=== PATIENT | female | born 1970 | race Caucasian/White ===

== ENCOUNTER → 2018-06-19 10:00 | Outpatient (CLI) | payer MEDICAID, SELFPAY ==
--- NOTE | 2018-06-19 10:08 | XR_ITS ---
XR forearm LT 2V HISTORY: ITS.REASON: LT FOREARM PAIN ORDERING PHYSICIAN: Dante Messer MD PATIENT AGE: 47 years COMPARISON: 12/24/2017 FINDINGS: There remains a bone plate over the proximal to mid aspect of the radius and mid aspect of the ulna. These bone plates and stabilizing screws are not significantly changed. There remains good alignment. No acute fracture or dislocation is evident. Multiple lucencies are present over the distal radius consistent with prior screw tracks. The fracture line of the junction of the proximal to mid radius is somewhat less apparent. Prominent soft tissue swelling is present along the proximal to mid aspect of the ulna. There remains good alignment. IMPRESSION: Status post ORIF fractures of the radius and ulna as described above with prominent soft tissue swelling along the ulna. There remains good alignment with interval progressive healing of the radial fracture
== END ==
PROVIDERS: PCP Internal Medicine Adolescent Medicine; Visit Provider Internal Medicine Adolescent Medicine
DX: M79.632 Pain in left forearm
CPT/HCPCS: 73090

== ENCOUNTER 2018-06-19 16:24 | Outpatient (RCR) | payer MEDICAID, SELFPAY | END 2018-06-19 16:29 | disposition home or self-care (01) | LOC: PT 16:24 | PROVIDERS: Visit Provider Internal Medicine Adolescent Medicine | DX: M79.602 Pain in left arm (principal) | CPT/HCPCS: 97763 ==

== ENCOUNTER 2018-07-22 10:36 | Observation (INO) ==
--- NOTE | 2018-07-22 11:28 | Pharmacy Consult Notes ---
[facility] Pharmacy VTE Monitoring - Patient Demographics Admission date: 07/22/18 Report Date: 07/22/18 Time: 11:28 Allergies/Adverse Reactions: Patient Allergies azithromycin [From ZITHROMAX] Allergy (Mild, Verified 05/20/18 21:19) codeine [CODEINE] Allergy (Mild, Verified 05/20/18 21:19) ketorolac [From TORADOL] Allergy (Mild, Verified 05/20/18 21:19) morphine [MORPHINE] Allergy (Mild, Verified 05/20/18 21:19) Penicillins [PENICILLINS] Allergy (Mild, Verified 05/20/18 21:19) promethazine [From PHENERGAN] Allergy (Mild, Verified 05/20/18 21:19) tramadol [From ULTRAM] Allergy (Mild, Verified 05/20/18 21:19) - VTE Risk VTE Score: 4 VTE Risk Level: Low Risk - Prophylaxis VTE Prophylaxis Ordered?: Yes Types of VTE Prophylaxis: TEDS Knee High Location of Applied Device: Bilateral Lower Extremeties - VTE Diagnosis Confirmed Treatment or plan recommended: Continue Current Treatment
[2018-07-22 12:03] LABS: Basophils % 0.1 % (0.1-2.0); Eosinophils % 0.3 % (0.1-12.0); Hemoglobin 13.5 g/dL (12.2-16.2); Lymphocytes # 1.8 K/mm3 (0.7-4.5); Lymphocytes % 18.3 % (10-50); Mean Corpuscular HGB Conc 33.7 g/dL (31.8-35.4); Mean Corpuscular Hemoglobin 30.2 pg (27.0-31.2); Mean Corpuscular Volume 89.6 fl (81-99); Mean Platelet Volume 9.2 fl (7.4-10.4); Monocytes # 0.8 K/mm3 (0.1-1.0); Monocytes % 8.1 % (1.7-9.3); Neutrophils # 7.1 K/mm3 (1.8-7.8); Neutrophils % 73.3 % (37.0-80.0); Platelet Count 183 K/mm3 (142-424); Red Blood Count 4.47 M/mm3 (4.20-5.40); Red Cell Distribution Width 13.3 % (11.5-17.5); White Blood Count 9.7 K/mm3 (4.8-10.8)
[2018-07-22 12:13] LABS: Albumin/Globulin Ratio 0.8 (1.1-1.8); Anion Gap 13.1 mEq/L (5-15); Bilirubin,Total 0.7 mg/dL (0.2-1.0); Calcium 8.5 mg/dL (8.5-10.1); Potassium 3.1 mmoL/L (3.5-5.1)
[2018-07-22 12:23] LABS: C-Reactive Protein 8.8 mg/L (0.0-0.9)
--- NOTE | 2018-07-22 13:35 | History & Physical Report ---
*Admission Date: 07/22/18 *Chief complaint: left arm pain and swelling *History of present illness: 47 year old female presented to PCP office with redness, swelling and pain of LUE. Patient reports syncopal episode on Friday in which she woke-up in the floor with black eye and left arm pain. She has had several other similar episodes of syncope over the last few months. Typically she has dizziness prior to passing out; however states "this time was different. I just went out." Patient reports left arm pain and swelling slowly progressed since injury. She has h/o ORIF of left forearm following traumatic fracture in 2001 with replacement again in 2017. Yesterday, she had onset of nausea, vomiting and low grade temps. She went to the ED last night, patient had CBC which was unremarkable. CRP and Sed Rate were slightly elevated. X-ray left forearm and elbow were unremarkable. CT scan of left FA showed soft tissue swelling. She was given a dose of IV antibiotics and advised to FU in office this morning. Today, patient reports pain and swelling has increased. Outlined area of erythema has extended since marking last evening. + low grade temps. + nausea. Denies open lesions or wounds. Patient was direct admitted for IV antibiotics and further evaluation. [facility] History I have reviewed the patient's past medical history: Yes Medical History: Reports:: Heart Murmur Denies:: Cancer, Diabetes Mellitus Type 1, Diabetes Mellitus Type 2, MRSA *Have you ever received a pneumonia vaccine?: Yes *Have you received a flu vaccine this season?: Yes Laterality Cases: Left: Arthroscopy Knee Other Surgeries: Yes: Tubal Ligation, Other (surgery left arm) Amputation: No Fractures: No (left ulna/radius) - *Social History Educational Level: Completed High School Smoking Status: Current every day smoker Tobacco Type: cigarettes # Packs/Day (cigarettes): 1 Alcohol Intake: former Substance Use Type: marijuana Last Used Substance: days (ago) *Occupational Status:: employed Housing: house Household Members: significant other *Travel in the last 8 weeks: None - Psychiatric History Expresses thoughts of harming self/others: None Suicide Plan Description: No Plan Family Hx:: Cancer, Heart Attack Review of Systems - Review of Systems Review of systems:: pertinent systems reviewed and negative unless documented below - Constitutional Reports fever(s), Reports malaise - *Gastrointestinal Reports nausea, Reports vomiting - Integumentary/Breasts Reports other Meds Home Medications Medication Instructions Recorded Confirmed Type gabapentin 800 mg tablet 800 mg PO QID tab 11/24/17 07/22/18 History oxycodone 5 mg tablet 5 mg PO TID tab 11/24/17 07/22/18 History SUMAtriptan succinate [Imitrex] 50 mg PO NEEDED PRN 12/24/17 07/22/18 History Lisinopril [Lisinopril 10mg Tab] 10 mg PO DAILY 07/21/18 07/22/18 History Citalopram Hydrobromide [Celexa] 10 mg PO DAILY 07/22/18 07/22/18 History Ipratropium/Albuterol Sulfate 3 ml IH Q4RT 07/22/18 07/22/18 History [Duoneb 3mL neb] Levothyroxine Sodium 50 mcg PO DAILY 07/22/18 07/22/18 History [Levothyroxine 50mcg (0.05mg) Tab] Metoprolol Succinate 100 mg PO DAILY 07/22/18 07/22/18 History Allergies Allergy/AdvReac Type Severity Reaction Status Date / Time azithromycin [From ZITHROMAX] Allergy Mild Verified 05/20/18 21:19 codeine [CODEINE] Allergy Mild Verified 05/20/18 21:19 ketorolac [From TORADOL] Allergy Mild Verified 05/20/18 21:19 morphine [MORPHINE] Allergy Mild Verified 05/20/18 21:19 Penicillins [PENICILLINS] Allergy Mild Verified 05/20/18 21:19 promethazine [From PHENERGAN] Allergy Mild Verified 05/20/18 21:19 tramadol [From ULTRAM] Allergy Mild Verified 05/20/18 21:19 Exam Vital signs and Labs for Last 24 Hours: Temp Pulse Resp BP Pulse Ox 99.1 F 106 H 18 136/71 99 07/22/18 13:26 07/22/18 11:30 07/22/18 11:30 07/22/18 11:30 07/22/18 11:30 Laboratory Results - last 24 hr 07/22/18 11:40: WBC 9.7, RBC 4.47, Hgb 13.5, Hct 40.0, MCV 89.6, MCH 30.2, MCHC 33.7, RDW 13.3, Plt Count 183, MPV 9.2, Neut % (Auto) 73.3, Lymph % (Auto) 18.3, [place] % (Auto) 8.1, Eos % (Auto) 0.3, Baso % (Auto) 0.1, Neut # (Auto) 7.1, Lymph # (Auto) 1.8, [place] # (Auto) 0.8, Eos # (Auto) 0.0, Baso # (Auto) 0.0 07/22/18 11:40: Sodium 141, Potassium 3.1 L, Chloride 105, Carbon Dioxide 26, Anion Gap 13.1, BUN 4 L, Creatinine 0.60, Estimated Creat Clear 120, Estimated GFR 106, Est GFR ( Amer) 129 D, Glucose 99 D, Calcium 8.5, Total Bilirubin 0.7, AST 12 L, ALT 23, Alkaline Phosphatase 100, C-Reactive Protein 8.8 H D, Total Protein 7.0, Albumin 3.0 L, Globulin 4.0 H, Albumin/Globulin Ratio 0.8 L 07/22/18 11:40: ESR 33 H I & O for Last 24 hours: Intake & Output 07/20/18 07/21/18 07/22/18 07/23/18 11:59 11:59 11:59 11:59 Weight 148 lb 4 oz Narrative: Alert and oriented x3. Rate and rhythm regular. Abdomen soft and nontender. Lung sounds with scattered wheezes. Neck without LAD, JVD. ENT exam unremarkable. Left forearm erythematous, edematous extending from wrist to approx 3 cm above AC, worse on medial aspect, tight, severe tender. Radial pulse 2+, no open lesions, ROM limited d/t pain/swelling Assessment and Plan (1) Cellulitis of left forearm Current visit: Yes Status: Acute Category: Medical Code(s): L03.114 - Cellulitis of left upper limb (2) Syncopal episodes Current visit: Yes Status: Acute Category: Medical Code(s): R55 - Syncope and collapse (3) Marijuana abuse Current visit: Yes Status: Acute Category: Medical Code(s): F12.10 - Cannabis abuse, uncomplicated (4) Chronic pain syndrome Current visit: Yes Status: Chronic Category: Medical Code(s): G89.4 - Chronic pain syndrome (5) COPD (chronic obstructive pulmonary disease) Current visit: Yes Status: Chronic Qualifiers: COPD type: COPD with acute exacerbation Qualified Code(s): J44.1 - Chronic obstructive pulmonary disease with (acute) exacerbation Category: Medical Code(s): J44.9 - Chronic obstructive pulmonary disease, unspecified (6) Essential (primary) hypertension Current visit: Yes Status: Acute Category: Medical Code(s): I10 - Essential (primary) hypertension (7) Acquired hypothyroidism Current visit: Yes Status: Chronic Category: Medical Code(s): E03.9 - Hypothyroidism, unspecified - Assessment and plan all Dx Assessment and Plan for all problems:: Admit to Medsurg. Start clindamycin and vancomycin for broad spectrum coverage. Will obtain blood cultures. Echo, carotid and telemetry to evaluate for underlying pathology of syncope. Home meds restarted which includes oxycodone for pain control.
--- NOTE | 2018-07-22 14:44 | Carotid Imaging Report ---
"Cerebrovascular Exam IMPRESSIONS 1. The bilateral vertebral arteries are patent with normal antegrade flow. 2. Study suggests less than 20% stenosis involving the right internal carotid artery. 3. Study suggests less than 20% stenosis involving the left internal carotid artery. History: Syncope. Risk factors: Current tobacco use. Hypertension. Carotid duplex study. Complete study and Doppler flow study including spectral analysis, color and chaparro scale imaging. Height: Height: 170.2cm. Height: 67in. Weight: Weight: 67.1kg. Weight: 147.7lb. Body mass index: BMI: 23.2kg/m^2. Body surface area: BSA: 1.79m^2. Location: Vascular laboratory. Patient status: Inpatient. Tables: Arterial flow: + +--------+--------+ |Location |V sys |V ed | + +--------+--------+ |Right CCA - proximal|123cm/s |36.9cm/s| + +--------+--------+ |Right CCA - distal |101cm/s |36.9cm/s| + +--------+--------+ |Right ECA |183cm/s |45.2cm/s| + +--------+--------+ |Right ICA - proximal|115cm/s |41.3cm/s| + +--------+--------+ |Right ICA - mid |110cm/s |45.2cm/s| + +--------+--------+ |Right ICA - distal |135cm/s |55cm/s | + +--------+--------+ |Right vertebral |66.8cm/s|--------| + +--------+--------+ |Left CCA - proximal |124cm/s |35.4cm/s| + +--------+--------+ |Left CCA - distal |108cm/s |40.3cm/s| + +--------+--------+ |Left ECA |189cm/s |--------| + +--------+--------+ |Left ICA - proximal |96.9cm/s|39.3cm/s| + +--------+--------+ |Left ICA - mid |111cm/s |48cm/s | + +--------+--------+ |Left ICA - distal |114cm/s |44.8cm/s| + +--------+--------+ |Left vertebral |44.5cm/s|--------| + +--------+--------+ Velocity ratios: + + + + + + | |Right, V sys|Right, V ed|Left, V sys|Left, V ed| + + + + + + |Max ICA/dist CCA|1.34 |1.49 |1.06 |1.19 | + + + + + + (Report amended ) Electronically signed by: Jason Carbajal [id number]"
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
--- NOTE | 2018-07-23 08:52 | Discharge Summary ---
General - General Admission date:: 07/22/18 Discharge date: 07/23/18 HPI HPI: 47 year old female presented to PCP office with redness, swelling and pain of LUE. Patient reports syncopal episode on Friday in which she woke-up in the floor with black eye and left arm pain. She has had several other similar episodes of syncope over the last few months. Typically she has dizziness prior to passing out; however states "this time was different. I just went out." Patient reports left arm pain and swelling slowly progressed since injury. She has h/o ORIF of left forearm following traumatic fracture in 2001 with replacement again in 2017. Yesterday, she had onset of nausea, vomiting and low grade temps. She went to the ED last night, patient had CBC which was unremarkable. CRP and Sed Rate were slightly elevated. X-ray left forearm and elbow were unremarkable. CT scan of left FA showed soft tissue swelling. She was given a dose of IV antibiotics and advised to FU in office this morning. Today, patient reports pain and swelling has increased. Outlined area of erythema has extended since marking last evening. + low grade temps. + nausea. Denies open lesions or wounds. Patient was direct admitted for IV antibiotics and further evaluation. Hospital Course Hospital Course: Patient was admitted to [facility] for IV antibiotics. She was given infusions of clindamycin and vancomycin. Sed rate and CRP were found to be elevated. WBC was normal. Blood cultures were obtained and are pending. Ortho was consulted who recommended transfer to tertiary care center. Telemetry was placed which was uneventful. Echo and Carotid dopplers were obtained due to her reported syncopal episode and found to be unremarkable. Patient had previous surgery by [facility] who were notified. PCP was advised to call [facility] to obtain bed. Spoke with hospitalist Dr. Avila who accepted patient. Today, patient reports no improvement of pain. Erythema has extended up the arm. She had temps through the night, up to 101.7. Bed became available this morning. Discharge patient to [facility] under the care of hospitalist Dr. Avila. Will remove IV prior to discharge and allow patient to travel by private care. Advised to go straight from [facility] to [facility]. FU with myself following discharge from [facility] Objective Vital signs: Temp Pulse Resp BP Pulse Ox 97.9 F 97 H 16 124/67 98 07/23/18 08:00 07/23/18 08:00 07/23/18 08:00 07/23/18 08:00 07/23/18 08:00 Narrative: Alert and oriented x3. Rate and rhythm regular. Lung sounds with scattered wheezes. Abdomen soft and nontender. Left arm with worsening edema and erythema, severe tender. Radial pulse 2+, cap refill normal Results Labs on day of discharge: Labs from last 24 hours 07/22/18 07/22/18 07/22/18 11:40 11:40 11:40 WBC 9.7 RBC 4.47 Hgb 13.5 Hct 40.0 MCV 89.6 MCH 30.2 MCHC 33.7 RDW 13.3 Plt Count 183 MPV 9.2 Neut % (Auto) 73.3 Lymph % (Auto) 18.3 [place] % (Auto) 8.1 Eos % (Auto) 0.3 Baso % (Auto) 0.1 Neut # (Auto) 7.1 Lymph # (Auto) 1.8 [place] # (Auto) 0.8 Eos # (Auto) 0.0 Baso # (Auto) 0.0 ESR 33 H Sodium 141 Potassium 3.1 L Chloride 105 Carbon Dioxide 26 Anion Gap 13.1 BUN 4 L Creatinine 0.60 Estimated Creat Clear 120 Estimated GFR 106 Est GFR ( Amer) 129 D Glucose 99 D Calcium 8.5 Total Bilirubin 0.7 AST 12 L ALT 23 Alkaline Phosphatase 100 C-Reactive Protein 8.8 H D Total Protein 7.0 Albumin 3.0 L Globulin 4.0 H Albumin/Globulin Ratio 0.8 L DS: Diagnosis - Discharge Diagnosis (1) Cellulitis of left forearm Status: Acute (2) Syncopal episodes Status: Acute (3) Marijuana abuse Status: Acute (4) Chronic pain syndrome Status: Chronic (5) COPD (chronic obstructive pulmonary disease) Status: Chronic (6) Essential (primary) hypertension Status: Acute (7) Acquired hypothyroidism Status: Chronic (8) History of fracture of forearm Status: Acute (9) Orthopedic hardware present Status: Acute Discharge Plan - Patient Discharge Instructions ACTIVITY: Continue current activity DIET: continue same diet Patient Instructions: DI for Cellulitis -- Adult - Follow up Plan Follow up with: Luz Atkins APRN [Nurse Practitioner] - 1 week (1 week post d/c from [facility]) Home Medications: Home Medications Medication Instructions Recorded Confirmed Type gabapentin 800 mg tablet 800 mg PO QID tab 11/24/17 07/22/18 History oxycodone 5 mg tablet 5 mg PO TID tab 11/24/17 07/22/18 History SUMAtriptan succinate [Imitrex] 50 mg PO NEEDED PRN 12/24/17 07/22/18 History Lisinopril [Lisinopril 10mg Tab] 10 mg PO DAILY 07/21/18 07/22/18 History Citalopram Hydrobromide [Celexa] 10 mg PO DAILY 07/22/18 07/22/18 History Ipratropium/Albuterol Sulfate 3 ml IH Q4RT 07/22/18 07/22/18 History [Duoneb 3mL neb] Levothyroxine Sodium 50 mcg PO DAILY 07/22/18 07/22/18 History [Levothyroxine 50mcg (0.05mg) Tab] Metoprolol Succinate 100 mg PO DAILY 07/22/18 07/22/18 History Prescriptions/Medication Reconciliation: Continue oxycodone 5 mg tablet 5 mg PO TID tab gabapentin 800 mg tablet 800 mg PO QID tab Lisinopril [Lisinopril 10mg Tab] 10 mg PO DAILY Ipratropium/Albuterol Sulfate [Duoneb 3mL neb] 3 ml IH Q4RT Citalopram Hydrobromide [Celexa] 10 mg PO DAILY Metoprolol Succinate 100 mg PO DAILY Levothyroxine Sodium [Levothyroxine 50mcg (0.05mg) Tab] 50 mcg PO DAILY Discontinued SUMAtriptan succinate [Imitrex] 50 mg PO NEEDED PRN PRN Reason: Migraine Headache
--- NOTE | 2018-07-23 13:46 | Cardiology Report ---
PROCEDURE: 2-D M-mode Doppler study INDICATIONS FOR THE TEST: Chest pain+ COPD+ Heart Murmur+ Tobacco Smoking+ Palpitations+ Fatigue+ Syncope+ Edema+ Hypertension+Diabetes Mellitus Rheumatic Fever SOB+HUNT+Obesity Hyperlipidemia Family History HD+ Additional History PATIENT INFORMATION HEIGHT: 67 WEIGHT: 148 GENDER: Female B/P: 132/80 2-D/M-MODE INTERPRETATION: 2-D MEASUREMENTS OBSERVED VALUES IN CMS Right Ventricular Dimension (RVDd) 1.8 Interventricular Septum (Thickness)(IVsd) 1.0 Left Ventricular Internal Dimensions(LVIDd) 2.5 Left Ventricular Posterior Wall (Thickness)(LVPWd) 1.0 Aortic Root 2.1 Aortic Cusp Separation 1.8 Left Atrial Dimensions (LAD) 3.9 2D 1. Left atrium is mildly enlarged, left ventricle is normal size, mild concentric left ventricular hypertrophy, visually estimated ejection fraction of 55% with no regional wall motion abnormality. 2. The right atrium and right ventricle are normal size and contractility. 3. The aortic valve is thickened and calcified leaflet continue to display mobility. 4. The mitral and tricuspid valve are grossly normal. 5. The pulmonic valve is poorly visualized. 6. No significant pericardial effusion noted. DOPPLER INTERROGATION: Doppler interrogation of the aortic, mitral and tricuspid valvular presence of mild mitral and tricuspid regurgitation, tricuspid regurgitation jet velocity is inadequate for calculation of the right ventricular systolic pressure, grade 1 diastolic dysfunction seen without tissue Doppler evidence of raised left atrial pressure. Inferior vena cava is normal size with normal inspiratory collapse. CONCLUSION: 1. Mildly left atrium, normal left ventricular size, mild concentric left ventricular hypertrophy, visually estimated ejection fraction 55% with no regional wall motion abnormality, grade 1 diastolic dysfunction seen without tissue Doppler evidence of raised left atrial pressure. 2. Mild mitral and tricuspid regurgitation. 3. Inferior vena cava is normal size with normal inspiratory collapse. 4. No significant pericardial effusion noted.
== END 2018-07-23 09:20 | disposition short-term general hospital (02) ==
LOC: 2ND
PROVIDERS: ADMIT Internal Medicine Adolescent Medicine; ATTEND Internal Medicine Adolescent Medicine
CPT/HCPCS: 71020; 71046; 80053; 85025; 85651; 86140; 87040; 93306; 93880; G0378; J2405

== ENCOUNTER → 2018-09-22 13:57 | Outpatient (CLI) | payer MEDICAID, SELFPAY ==
--- NOTE | 2018-09-22 14:00 | CT_ITS ---
CT chest wo/w con HISTORY: Follow-up lung nodule ITS.REASON: LUNG NODULE ORDERING PHYSICIAN: Dante Messer MD PATIENT AGE: 47 years COMPARISON: 05/20/2018 Technique: Axial images obtained without and with contrast. 75 mL Optiray 350 IV utilized.. Sagittal, and coronal reformatted images are also generated and reviewed. All CT scans at the facility use one or more dose reduction, viz: automated exposure control, ma/kV adjustment per patient size (including targeted exams where dose is matched to indication, i.e. head), or iterative reconstruction technique. FINDINGS: Multiple calcified nodules are once again noted and not significant change. Calcified nodes are present in the left hilum. No mediastinal or hilar mass or adenopathy is evident. There is mild thickening of the distal esophagus nonspecific. Again there is noted a irregular opacity in the right middle lobe with central calcification likely related to scarring not significantly changed. No new nodules are evident. There is coarsening of the bronchovascular markings which may be related to smoking-related lung disease. No lobar consolidation or collapse. IMPRESSION: Overall stable CT appearance of the chest. No change in the multiple calcified nodules as well as the irregular opacity in the right middle lobe with central calcification. COPD. 6-12 month follow up recommended
== END ==
PROVIDERS: PCP Internal Medicine Adolescent Medicine; Visit Provider Internal Medicine Adolescent Medicine
DX: R91.1 Solitary pulmonary nodule (principal)
CPT/HCPCS: 71270; Q9967